=== PATIENT | male | born 1985 | race African-American/Black ===

== ENCOUNTER 2022-03-02 15:47 | Emergency (ER) | payer OTHER ==
[2022-03-02 17:11] LABS: BASOPHIL 0.9 % (0-2); HCT 43.9 % (42.0-52.0); HGB 14.6 g/dl (13.2-18.0); LYMPHOCYTE 51.1 % (15-48); MCH 29.8 pg (25.0-31.0); MCHC 33.3 g/dL (32.0-36.0); MCV 89.6 fL (78.0-100.0); MONOCYTE 8.1 % (0-12); MPV 9.8 fL (6.0-9.5); NEUTROPHIL 25.7 % (41-80); NRBC 0; PLT 198 K/uL (150-400); RDW 14.4 % (11.5-14.0); WBC 5.7 K/uL (4.0-10.5)
[2022-03-02 17:58] LABS: CREATININE 0.75 mg/dL (0.67-1.17); POTASSIUM 4.4 mmol/L (3.5-5.1)
[2022-03-02] MEDS ORDERED: MEDROL 4MG DOSEP4 MG PO (18:20)
== END 2022-03-02 18:52 | disposition home or self-care (01) ==
LOC: FER 15:47
PROVIDERS: Nurse Practitioner Family
DX: J45.901 Unspecified asthma with (acute) exacerbation (principal); I10 Essential (primary) hypertension; Z88.0 Allergy status to penicillin; Z79.899 Other long term (current) drug therapy
CPT/HCPCS: 36415; 71045; 80048; 85025; 94640; 94664